=== PATIENT | female | born 1975 | race Caucasian/White ===

== ENCOUNTER 2016-09-08 22:19 | Emergency (ER) | payer MEDICAID ==
[~2016-09-08] VITALS: Ht 154.9 cm; Wt 85.8 kg
[2016-09-08 22:51] VITALS: BP 126/82
--- NOTE | 2016-09-09 01:05 | NUR ---
C/O CHEST PAIN/CHEST CONGESTION/RUNNY NOSE/SORE THROAT/EAR PAIN MED HX; ASTHMA. DENIES N/V/D; SKIN IS PINK/WARM/DRY; AAOX4 WITH EVEN AND STEADY GAIT; HR EVEN AND REGULAR; PT DENIES ANY FEVER. PATIENT STATES PAIN OF 6/10 AT THIS TIME; VSS; PATIENT POSITIONED FOR COMFORT; HOB ELEVATED; BEDRAILS UP X2; BED DOWN. ER MD MADE AWARE OF PT STATUS.
[2016-09-09] MEDS ORDERED: ALBUTEROL SULFATE/IPRATROPIU 3 ML SOL IH ONE (01:45)
[2016-09-09] MEDS ORDERED: predniSONE 20 MG TAB PO ONE (01:45)
--- NOTE | 2016-09-09 02:10 | NUR ---
PT RESTING IN BED. NO SOB NOTED. AT BEDSIDE.
[2016-09-09] MEDS ORDERED: ACETAMIN/CODEINE 120/12MG-5ML 5 ML UDC PO ONE (02:15)
[2016-09-09 03:05] VITALS: BP 122/79
--- NOTE | 2016-09-09 03:05 | NUR ---
Patient discharged with v/s stable. Written and verbal after care instructions given and explained. Patient alert, oriented and verbalized understanding of instructions. Ambulatory with steady gait. All questions addressed prior to discharge. ID band removed. Patient advised to follow up with PMD. Rx of GUAIATUSSIN AC, ALBUTEROL, PREDNISONE given. Patient educated on indication of medication including possible reaction and side effects. Opportunity to ask questions provided and answered.
== END 2016-09-09 03:05 | disposition home or self-care (01) ==
LOC: MED 22:19
DX: J45.901 Unspecified asthma with (acute) exacerbation (principal)
CPT/HCPCS: 71010; 81002; 81025; 99283; J7512; J7620; Q0092; 94640